=== PATIENT | female | born 1955 | race Asian ===

== ENCOUNTER 2019-09-02 18:02 | Emergency (ER) | payer MEDICAID ==
[~2019-09-02] VITALS: Ht 160 cm; Wt 54.4 kg
--- NOTE | 2019-09-02 18:03 | NUR ---
Patient to ER bed 4 to gown for evaluation. Side rails up. Report given to FABY PORTILLO.
[2019-09-02 18:12] VITALS: BP_SYST 174
--- NOTE | 2019-09-02 19:30 | NUR ---
Dr. Bains [facility] for eval
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
[2019-09-02 21:00] VITALS: BP_SYST 168
--- NOTE | 2019-09-02 21:00 | NUR ---
Patient given written and verbal discharge instructions and verbalizes understanding. ER MD discussed with patient the results and treatment provided. Patient in stable condition. ID arm band removed. Patient educated on pain management and to follow up with PMD. Pain Scale 0/10 Opportunity for questions provided and answered.
== END 2019-09-02 21:00 | disposition home or self-care (01) ==
LOC: SED 18:02
DX: R07.89 Other chest pain (principal); R03.0 Elevated blood-pressure reading, without diagnosis of hypertension; Z88.6 Allergy status to analgesic agent; V89.2XXA Person injured in unspecified motor-vehicle accident, traffic, initial encounter; Y93.89 Activity, other specified; Y92.89 Other specified places as the place of occurrence of the external cause; Y99.8 Other external cause status
CPT/HCPCS: 99281